=== PATIENT | male | born 1940 | race Caucasian/White ===

== ENCOUNTER 2017-11-28 09:01 | Emergency (ER) | payer MEDICARE, BC ==
[2017-11-28] MEDS ORDERED: Sodium Chloride 0.9% 2.5 ML Syringe FLUSH PRN (09:12)
[2017-11-28] MEDS ORDERED: Sodium Chloride 0.9% 10 ML Syringe FLUSH PRN (09:12)
[2017-11-28] MEDS ORDERED: Lactated Ringers 1,000 ML IV ONE (09:33)
[2017-11-28] MEDS ORDERED: Morphine 4 MG/ML Syringe IVPUSH ONE (09:33)
[2017-11-28 10:06] LABS: CHLORIDE,CL 97 mmol/L (98-107); SODIUM,NA 138 mmol/L (136-148)
--- NOTE | 2017-11-28 10:16 | EDM.PDOC ---
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 He has 24/7 home health nursing care at home, chronic indwelling Sanon and a PEG tube. Patient has had temperatures of 99.2 to at night, has been coughing and has been getting high residuals from his G-tube. Review of systems: As per history of present illness and below otherwise all systems reviewed and negative. Past medical history: As per history of present illness and as reviewed below otherwise noncontributory. Surgical history: As per history of present illness and as reviewed below otherwise noncontributory. Social history: No reported history of drug or alcohol abuse. Family history: As per history of present illness and as reviewed below otherwise noncontributory. Physical exam: General: Well developed, well nourished patient coughs occasionally, requires oral suctioning HEENT: Atraumatic, normocephalic, pupils reactive, negative for conjunctival pallor or scleral icterus, mucous membranes dry, throat clear, neck supple, nontender, trachea midline. Lungs: Clear to auscultation, rales bilaterally no respiratory distress, breath sounds equal bilaterally, chest nontender. Heart: S1S2, regular, negative for clicks, rubs, or JVD. Abdomen: Firm over lower abdomen nondistended, nontender. No rebound or guarding Negative for masses or hepatosplenomegaly. Negative for costovertebral tenderness. Pelvis: Stable nontender. Genitourinary: Deferred. Rectal: Deferred. Extremities: Atraumatic, negative for cords or calf pain. Neurovascular unremarkable. Neuro: Awake, Exam nonfocal. Diagnostics: []Acute abdominal series shows constipation no signs of obstruction chest x-ray negative for pneumonia CBC shows a white count of 20,000, BUN and creatinine are 41 and 0.7, Therapeutics: []IV hydration, IV Rocephin, Impression: []Early pneumonia, dehydration, constipation Plan: []They have offered admission to this family for the patient with pneumonia despite patient having oxygen and 24/7 nursing care at home. Definitive disposition and diagnosis as appropriate pending reevaluation and review of above. - Related Data Allergies Allergy/AdvReac Type Severity Reaction Status Date / Time No Known Allergies Allergy Unverified 09/15/16 13:16 Home Meds: Home Meds Acetaminophen [Tylenol Extra Strength] 500 mg NGTUBE BID PRN 11/20/15 [History] Albuterol/Ipratropium [DuoNeb 3.0-0.5 MG/3 ML] 3 ml NEB 5XDAY 11/20/15 [History] Cetirizine HCl [Zyrtec] 10 mg NGTUBE DAILY@22311/20/15 [History] Clopidogrel [Plavix] 37.5 mg PO .ON HOLD UNTIL 12/0811/20/15 [History] Lisinopril 5 mg GTUBE DAILY@2300 11/20/15 [History] Mag Hydrox/Al Hydrox/Simeth [Maalox Maximum Strength Susp] 15 ml NGTUBE QID [History] Metoclopramide HCl 5 mg NGTUBE 1030,1430,1930,2230 11/20/15 [History] OLANZapine [Olanzapine] 5 mg NGTUBE BEDTIME 11/20/15 [History] Potassium Chloride 5 meq NGTUBE DAILY 11/20/15 [History] Ranitidine HCl [Ranitidine] 150 mg NGTUBE BID 11/20/15 [History] Dextromethorphan HBr [Scot-Tussin] 10 ml NGTUBE QID PRN 09/15/16 [History] Sulfamethoxazole/Trimethoprim [Bactrim 400-80 MG] 1.5 tab NGTUBE DAILY@0800 [History] diphenhydrAMINE HCl [Benadryl] 25 mg NGTUBE BID@1030,1930 09/15/16 [History] guaiFENesin [Mucinex] 600 mg NGTUBE 08,13,18,23 09/15/16 [History] Acetaminophen 1,000 mg NGTUBE Q4H PRN 11/28/17 [History] Bacitracin Zinc [Antibiotic] 1 applic TOP TID 11/28/17 [History] Bacitracin/Neomycin/Polymyxin [Triple Antibiotic Oint] 1 applic TOP . NEEDED PRN 11/28/17 [History] Betamethasone/Clotrimazole [Lotrisone] 1 applic TOP BID 11/28/17 [History] Ciprofloxacin [Ciprofloxacin 0.3% Ophth Soln] 1 - 2 drop EYEBOTH Q4H 11/28/17 [ History] Gentamicin [Garamycin 0.3% Ophth Soln] 1 - 2 drop EYEBOTH QID PRN 11/28/17 [ History] Hyoscyamine [Hyosyne] 0.125 mg NGTUBE Q4H PRN 11/28/17 [History] Insulin Aspart [Novolog Flexpen] See Protocol SUBCUT QID 11/28/17 [History] Insulin Glargine,Hum.Rec.Anlog [Lantus Solostar] 12 unit SQ BEDTIME 11/28/17 [ History] Levofloxacin [Levaquin] 500 mg PO DAILY #7 tab 11/28/17 [Rx] Loperamide [Imodium] 2 mg NGTUBE . NEEDED PRN 11/28/17 [History] Magnesium Hydroxide [Milk of Magnesia] 800 mg NGTUBE QID PRN 11/28/17 [History] Nutritional Supplement [Osmolite 1.5 Jovan] 40 ml NGTUBE .EVERY HOUR 11/28/17 [ History] Nystatin 1 applic TOP . NEEDED PRN 11/28/17 [History] Nystatin [Nystatin Crm] 1 applic TOP TID PRN 11/28/17 [History] Silver Sulfadiazine [Silvadene 1% Cream 85 GM] 1 applic TOP BID 11/28/17 [ History] Simethicone 125 mg NGTUBE . NEEDED PRN 11/28/17 [History] oxyCODONE 2.5 - 5 mg NGTUBE . NEEDED PRN 11/28/17 [History] Past Medical History HEENT History: Reports: Hard of Hearing Cardiovascular History: Reports: Other (See Below) Other Cardiovascular History: CVA with deficits last was 2009 Respiratory History: Reports: Pneumonia, Recurrent Other Respiratory History: previous pneumonia history Gastrointestinal History: Reports: Other (See Below) Other Gastrointestinal History: Peg Tube Genitourinary History: Reports: UTI, Recurrent, Other (See Below) Other Genitourinary History: continuous Sanon Catheter Musculoskeletal History: Reports: None, Other (See Below) Other Musculoskeletal History: bedridden Neurological History: Reports: CVA Psychiatric History: Reports: None Endocrine/Metabolic History: Reports: Diabetes, Type II Hematologic History: Reports: None Immunologic History: Reports: None Oncologic (Cancer) History: Reports: None Dermatologic History: Reports: None - Infectious Disease History Infectious Disease History: Reports: MRSA Other Infectious Disease History: MRSA 2012 - Past Surgical History Head Surgeries/Procedures: Reports: None HEENT Surgical History: Reports: None Cardiovascular Surgical History: Reports: None GI Surgical History: Reports: Other (See Below) Social & Family History - Family History Family Medical History: Noncontributory Other HEENT Family History: spouse cannot well identify patient's family medical history aside from patioent's mother has Cancer. - Tobacco Use Smoking Status *Q: Current Status Unknown Years of Tobacco use: 40 Packs/Tins Daily: 0.5 Used Tobacco, but Quit: No Month/Year Tobacco Last Used: 2003 Second Hand Smoke Exposure: No - Caffeine Use Caffeine Use: Reports: None - Alcohol Use Number of Drinks Per Day: 0 - Recreational Drug Use Recreational Drug Use: No - Living Situation & Occupation Living situation: Reports: ED ROS GENERAL - Review of Systems Review Of Systems: See Below (See history of present illness) ED EXAM, GENERAL - Physical Exam Exam: See Below (See history of present illness) Course - Vital Signs Last Recorded V/S: Last Vital Signs Temp 100.0 F 11/28/17 12:48 Pulse 79 11/28/17 12:48 Resp 22 H 11/28/17 12:48 BP 129/61 11/28/17 12:48 Pulse Ox 94 L 11/28/17 12:48 - Orders/Labs/Meds Orders: Active Orders 24 hr Category Date Time Status CULTURE URINE [RM] Stat Lab 11/28/17 10:55 Ordered UA W/MICROSCOPIC [URIN] Stat Lab 11/28/17 10:55 Ordered Sodium Chloride 0.9% [Saline Flush] Med 11/28/17 09:12 Active 10 ml FLUSH ASDIRECTED PRN Sodium Chloride 0.9% [Saline Flush] Med 11/28/17 09:12 Active 2.5 ml FLUSH ASDIRECTED PRN Saline Lock Insert [OM.PC] Stat Oth 11/28/17 09:12 Ordered Medication Orders Sodium Chloride (Saline Flush) 10 ml FLUSH ASDIRECTED PRN PRN Reason: Keep Vein Open Sodium Chloride (Saline Flush) 2.5 ml FLUSH ASDIRECTED PRN PRN Reason: Keep Vein Open Labs: Laboratory Tests 11/28/17 11/28/17 11/28/17 Range/Units 09:25 09:25 10:55 WBC 20.74 H (4.0-11.0) K/uL RBC 5.27 (4.50-5.90) M/uL Hgb 13.5 (13.0-17.0) g/dL Hct 41.5 (38.0-50.0) % MCV 78.7 L (80.0-98.0) fL MCH 25.6 L (27.0-32.0) pg MCHC 32.5 (31.0-37.0) g/dL RDW Std Deviation 45.4 (28.0-62.0) fl RDW Coeff of Donna 16 H (11.0-15.0) % Plt Count 323 (150-400) K/uL MPV 11.00 (7.40-12.00) fL Neut % (Auto) 87.8 H (48.0-80.0) % Lymph % (Auto) 3.4 L (16.0-40.0) % [place] % (Auto) 8.7 (0.0-15.0) % Eos % (Auto) 0.0 (0.0-7.0) % Baso % (Auto) 0.1 (0.0-1.5) % Neut # (Auto) 18.2 H (1.4-5.7) K/uL Lymph # (Auto) 0.7 (0.6-2.4) K/uL [place] # (Auto) 1.8 H (0.0-0.8) K/uL Eos # (Auto) 0.0 (0.0-0.7) K/uL Baso # (Auto) 0.0 (0.0-0.1) K/uL Nucleated RBC % 0.0 /100WBC Nucleated RBCs # 0 K/uL Sodium 138 (136-148) mmol/L Potassium 3.8 (3.5-5.1) mmol/L Chloride 97 L (98-107) mmol/L Carbon Dioxide 33.9 H (21.0-32.0) mmol/L BUN 41 H (7.0-18.0) mg/dL Creatinine 0.7 L (0.8-1.3) mg/dL Est Cr Clr Drug Dosing TNP Estimated GFR (MDRD) > 60.0 ml/min Glucose 205 H (74-106) mg/dL Calcium 10.5 H (8.5-10.1) mg/dL Total Bilirubin 0.4 (0.2-1.0) mg/dL AST 30 (15-37) IU/L ALT 30 (14-63) IU/L Alkaline Phosphatase 133 H (46-116) U/L Total Protein 7.7 (6.4-8.2) g/dL Albumin 2.9 L (3.4-5.0) g/dL Globulin 4.8 H (2.0-3.5) g/dL Albumin/Globulin Ratio 0.6 L (1.3-2.8) Urine Color YELLOW Urine Appearance CLEAR Urine pH 7.5 (5.0-8.0) Ur Specific Alvin 1.025 (1.001-1.035) Urine Protein TRACE (NEGATIVE) mg/dL Urine Glucose (UA) NEGATIVE (NEGATIVE) mg/dL Urine Ketones NEGATIVE (NEGATIVE) mg/dL Urine Occult Blood LARGE H (NEGATIVE) Urine Nitrite NEGATIVE (NEGATIVE) Urine Bilirubin SMALL H (NEGATIVE) Urine Ictotest NEGATIVE Urine Urobilinogen 0.2 (<2.0) EU/dL Ur Leukocyte Esterase LARGE (NEGATIVE) Urine RBC 3-5 (0-2/HPF) Urine WBC 1-3 (0-5/HPF) Ur Epithelial Cells OCCASIONAL (NONE-FEW) Amorphous Sediment LIGHT (NEGATIVE) Urine Bacteria 1+ H (NEGATIVE) Meds: Medications Generic Name Dose Route Start Last Admin Trade Name Freq PRN Reason Stop Dose Admin Sodium Chloride 10 ml 11/28/17 09:12 Saline Flush FLUSH ASDIRECTED PRN Keep Vein Open Sodium Chloride 2.5 ml 11/28/17 09:12 Saline Flush FLUSH ASDIRECTED PRN Keep Vein Open Discontinued Medications Generic Name Dose Route Start Last Admin Trade Name Freq PRN Reason Stop Dose Admin Acetaminophen 650 mg 11/28/17 12:51 11/28/17 13:07 Tylenol GTUBE 11/28/17 12:52 650 mg NOW ONE Administration Lactated Ringer's 1,000 mls @ 999 mls/hr 11/28/17 09:33 11/28/17 09:48 Ringers, Lactated IV 11/28/17 10:33 999 mls/hr .BOLUS ONE Administration Ceftriaxone Sodium/Dextrose 1 50 mls @ 100 mls/hr 11/28/17 11:37 11/28/17 11: 47 gm/ Premix IV 11/28/17 12:06 100 mls/hr ONETIME ONE Administration Morphine Sulfate 2 mg 11/28/17 09:33 11/28/17 09:54 Morphine IVPUSH 11/28/17 09:34 2 mg ONETIME ONE Administration Departure - Departure Time of Disposition: 12:22 Disposition: Home, W Home Health Agency 06 Condition: Fair Clinical Impression: Dehydration Pneumonia Qualifiers: Aspiration pneumonia type: unspecified Laterality: unspecified laterality Lung location: unspecified part of lung Constipation Qualifiers: Constipation type: unspecified constipation type Qualified Code(s): K59.00 - Constipation, unspecified - Discharge Information Prescriptions: Levofloxacin [Levaquin] 500 mg PO DAILY #7 tab Instructions: Constipation, Adult, [id number], Dehydration, Adult, Easy-to- Read, Community-Acquired Pneumonia, Adult, [id number] Referrals: [facility] [Outside] PCP,Unknown [Primary Care Provider] - Forms: ED Department Discharge Additional Instructions: The following information is given to patients seen in the emergency department who are being discharged to home. This information is to outline your options for follow-up care. We provide all patients seen in our emergency department with a follow-up referral. The need for follow-up, as well as the timing and circumstances, are variable depending upon the specifics of your emergency department visit. If you don't have a primary care physician on staff, we will provide you with a referral. We always advise you to contact your personal physician following an emergency department visit to inform them of the circumstance of the visit and for follow-up with them and/or the need for any referrals to a consulting specialist. The emergency department will also refer you to a specialist when appropriate. This referral assures that you have the opportunity for follow-up care with a specialist. All of these measure are taken in an effort to provide you with optimal care, which includes your follow-up. Under all circumstances we always encourage you to contact your private physician who remains a resource for coordinating your care. When calling for follow-up care, please make the office aware that this follow-up is from your recent emergency room visit. If for any reason you are refused follow-up, please contact the [facility] Emergency Department at and asked to speak to the emergency department charge nurse. Use glycerin suppositories and/or enemas for constipation, increase fluids through PEG, Levaquin 1 pill daily crushed through PEG follow-up with primary care by phone or return to ER if symptoms worsen or change. - My Orders Last 24 Hours: My Active Orders 11/28/17 09:12 Sodium Chloride 0.9% [Saline Flush] 10 ml FLUSH ASDIRECTED PRN Sodium Chloride 0.9% [Saline Flush] 2.5 ml FLUSH ASDIRECTED PRN Saline Lock Insert [OM.PC] Stat 11/28/17 10:55 CULTURE URINE [RM] Stat UA W/MICROSCOPIC [URIN] Stat - Assessment/Plan Last 24 Hours: My Active Orders 11/28/17 09:12 Sodium Chloride 0.9% [Saline Flush] 10 ml FLUSH ASDIRECTED PRN Sodium Chloride 0.9% [Saline Flush] 2.5 ml FLUSH ASDIRECTED PRN Saline Lock Insert [OM.PC] Stat 11/28/17 10:55 CULTURE URINE [RM] Stat UA W/MICROSCOPIC [URIN] Stat
--- NOTE | 2017-11-28 11:02 | CR ---
EXAMINATION: Portable chest radiograph. HISTORY: Shortness of breath. Comparison: 09/23/2016. FINDINGS: The trachea is midline. The cardiomediastinal silhouette is within normal limits. Mild atelectasis an d/or scarring noted within the left lung base. Chronic interstitial prominence. Osseous structures appear osteopenic. IMPRESSION: No definite acute cardiopulmonary process.
--- NOTE | 2017-11-28 11:07 | CR ---
EXAMINATION: Abdomen HISTORY: Question obstruction. COMPARISON: None TECHNIQUE: AP and upright views FINDINGS: There is no free air under the diaphragm. A bulb of the G-tube projects over the stomach. S tool and gas is noted within the colon with a moderate amount of stool within the region of the rectu m. No dilated small bowel to suggest an obstruction. Osseous structures appear osteopenic. No definit e abnormal calcifications. Degenerative changes noted within the hips and lumbar spine. IMPRESSION: 1. Moderate amount of stool projects over the rectum, correlate for mild impaction. No evidence of a small bowel obstruction. 2. Bulb of a G-tube projects over the stomach.
[2017-11-28] MEDS ORDERED: cefTRIAXone 1 GM in Premix Bag 1 BAG IV ONE (11:37)
[2017-11-28] MEDS ORDERED: Acetaminophen 325 MG Tab GTUBE ONE (12:51)
[2017-11-28 16:20] VITALS: BP 101/59
== END 2017-11-28 13:10 | disposition home health service (06) ==
LOC: MW.ED 09:01
DX: J18.9 Pneumonia, unspecified organism (principal); K59.00 Constipation, unspecified; E86.0 Dehydration; E11.9 Type 2 diabetes mellitus without complications; Z79.899 Other long term (current) drug therapy; Z79.4 Long term (current) use of insulin
CPT/HCPCS: 36415; 71045; 71045-26; 74019; 74019-26; 80053; 81001; 82962; 85025; 87086; 87088; 87186; 96365; 96367; 96375; 99284; 99284-25; A9270-GY; J0696; J2270; J7120